=== PATIENT | female | born 1965 | race Two or more races ===

== ENCOUNTER 2017-11-23 10:27 | Emergency (ER) | payer OTHER ==
[2017-11-23 10:34] VITALS: BP 125/83; PULSE 76; TEMP 99; O2SAT 96
[2017-11-23 10:35] VITALS: BMI 23.8
[2017-11-23] MEDS ORDERED: Amoxicillin-Clav 875-125 mg Tab PO STA (11:21)
--- NOTE | 2017-11-23 11:25 | ED PDOC ---
Upper Extremity Pain/Injury Time Seen by Provider: 11/23/17 11:00 Chief Complaint (Nursing): Abnormal Skin Integrity Chief Complaint (Provider): dog bite History Per: Family (52 y/o female here for evaluation of dogbite injury that occurred today. 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 Dog was unprovoked; noted that cleaning crew was leaning for rag when it occurred. Right hand dominant. NOtes small abrasion but moderate pain in hand. Tetanus up to date within 5 years.) Past Medical History Reviewed: Historical Data, Nursing Documentation, Vital Signs Vital Signs: Last Vital Signs Temp 99 F 11/23/17 10:33 Pulse 76 11/23/17 10:33 Resp BP 125/83 11/23/17 10:33 Pulse Ox 96 11/23/17 10:33 - Family History Family History: States: No Known Family Hx - Home Medications Home Medications: Ambulatory Orders Medication Instructions Recorded Amoxicillin/Clavulanate [Augmentin 1 tab PO BID #9 tab 11/23/17 875 MG-125 MG] Naproxen 375 mg PO Q8 PRN #21 tablet 11/23/17 - Allergies Allergies/Adverse Reactions: Allergies Allergy/AdvReac Type Severity Reaction Status Date / Time No Known Allergies Allergy Verified 11/23/17 11:00 Review of Systems ROS Statement: Except As Marked, All Systems Reviewed And Found Negative Physical Exam - Reviewed Nursing Documentation Reviewed: Yes Vital Signs Reviewed: Yes - Physical Exam Appears: Positive for: Well, Non-toxic, No Acute Distress Head Exam: Positive for: ATRAUMATIC, NORMAL INSPECTION, NORMOCEPHALIC Skin: Positive for: Normal Color, Warm, DRY Eye Exam: Positive for: EOMI, Normal appearance, PERRL ENT: Positive for: Normal ENT Inspection Neck: Positive for: Normal, Painless ROM Cardiovascular/Chest: Positive for: Regular Rate, Rhythm Respiratory: Positive for: CNT, Normal Breath Sounds Gastrointestinal/Abdominal: Positive for: Normal Exam, Soft Back: Positive for: Normal Inspection Extremity: Positive for: Normal ROM, Other (small skin avulsion noted thenar prominence of right hand. Tender to touch in this region.) Neurologic/Psych: Positive for: Alert, Oriented - ECG O2 Sat by Pulse Oximetry: 96 - Progress ED Course And Treament: Augmentin 875 mg x 1 dose As dog is known, patient to ask prosthodontist/owner to locate vaccine status. If unknown, Animal control to be notified. Xry of hand: no fx Wound cleansed with betadiene/ sterile water profusely Wound dressed with bacitracin ointment. Disposition - Clinical Impression Clinical Impression: Dog bite - Patient ED Disposition Is Patient to be Admitted: No - Disposition Disposition: Routine/Home Disposition Time: 11:27 Condition: FAIR Additional Instructions: RETURN IN 2 DAYS FOR WOUND CHECK Prescriptions: Amoxicillin/Clavulanate [Augmentin 875 MG-125 MG] 1 tab PO BID #9 tab Naproxen 375 mg PO Q8 PRN #21 tablet PRN Reason: Pain, Moderate (4-7) Instructions: Animal Bites (DC) Forms: [facility] ED School/Work Excuse
--- NOTE | 2017-11-23 13:30 | RAD ---
HISTORY: hand injury COMPARISON: No prior FINDINGS: BONES: Normal. No fracture. JOINTS: Normal. No osteoarthritis. SOFT TISSUE: Normal. OTHER FINDINGS: None . IMPRESSION: Normal Bone Xray.
== END 2017-11-23 12:23 | disposition home or self-care (01) ==
LOC: H.ER 10:27
DX: S60.511A Abrasion of right hand, initial encounter (principal); W54.0XXA Bitten by dog, initial encounter; Y92.89 Other specified places as the place of occurrence of the external cause

== ENCOUNTER 2017-11-25 16:50 | Emergency (ER) | payer OTHER ==
[2017-11-25 16:50] VITALS: BMI 23.8
[2017-11-25 16:57] VITALS: BP 119/82; PULSE 82; RESP 16; TEMP 98.2; O2SAT 98
[2017-11-25] MEDS ORDERED: Rabies Immune Globulin 150 INTLU/ML VIAL IM STA (17:13)
--- NOTE | 2017-11-25 17:48 | ED PDOC ---
HPI: Skin/Bite Injury Time Seen by Provider: 11/25/17 17:13 Chief Complaint (Nursing): Bite Chief Complaint (Provider): Dog Bite History Per: Patient History/Exam Limitations: no limitations Onset/Duration Of Symptoms: Days Current Symptoms Are (Timing): Still Present Additional Complaint(s): 52 year old female presents to the emergency room with a dog bite. Patient states that she was seen her in the emergency room on Friday for a dog bite and states that since then she has been able to have the animal quarantined and is unclear of the rabies status. She reports that she is here today to receive the rabies vaccine. PMD: Shaik Villanueva Past Medical History Reviewed: Historical Data, Nursing Documentation, Vital Signs Vital Signs: Last Vital Signs Temp 98.2 F 11/25/17 16:54 Pulse 82 11/25/17 16:54 Resp 16 11/25/17 16:54 BP 119/82 11/25/17 16:54 Pulse Ox 98 11/25/17 17:52 - Medical History PMH: No Chronic Diseases - Surgical History Surgical History: No Surg Hx - Family History Family History: States: Unknown Family Hx - Home Medications Home Medications: Ambulatory Orders Medication Instructions Recorded Amoxicillin/Clavulanate [Augmentin 1 tab PO BID #9 tab 11/23/17 875 MG-125 MG] Naproxen 375 mg PO Q8 PRN #21 tablet 11/23/17 - Allergies Allergies/Adverse Reactions: Allergies Allergy/AdvReac Type Severity Reaction Status Date / Time No Known Allergies Allergy Verified 11/23/17 11:00 Review of Systems Skin: Positive for: Other (dog bite) Physical Exam - Reviewed Nursing Documentation Reviewed: Yes Vital Signs Reviewed: Yes - Physical Exam Appears: Positive for: Well, Non-toxic, No Acute Distress Head Exam: Positive for: ATRAUMATIC, NORMAL INSPECTION, NORMOCEPHALIC Skin: Positive for: Normal Color, Warm, DRY Eye Exam: Positive for: EOMI, Normal appearance, PERRL ENT: Positive for: Normal ENT Inspection Neck: Positive for: Normal, Painless ROM Cardiovascular/Chest: Positive for: Regular Rate, Rhythm Respiratory: Positive for: CNT, Normal Breath Sounds Gastrointestinal/Abdominal: Positive for: Normal Exam, Soft Back: Positive for: Normal Inspection Extremity: Positive for: Normal ROM, Other (right hand avulsion flap laceration palmar surface small healing well. No signs of infection ) Neurologic/Psych: Positive for: Alert, Oriented - ECG O2 Sat by Pulse Oximetry: 98 (RA) Pulse Ox Interpretation: Normal - Progress ED Course And Treament: 1160 IU rabies immunoglobin approximately 1/2 given by right hand rabies vaccine 1ml IM x 1 dose Medical Decision Making Medical Decision Makin Initial Impression 52 year old female presenting with dog bite Initial plan: * Imogam 1160 intlu IM * Rabavert vaccine inj 2.5 units IM * Reevaluation Documented by Althea Trevino acting as a scribe for Jann Lynn PA-C. All medical record entries made by the Scribe were at my direction and personally dictated by me. I have reviewed the chart and agree that the record accurately reflects my personal performance of the history, physical exam, medical decision making, and the department course for this patient. I have also personally directed, reviewed, and agree with the discharge instructions and disposition. Disposition - Clinical Impression Clinical Impression: Animal bite wound, Need for rabies vaccination - Patient ED Disposition Is Patient to be Admitted: No - Disposition Disposition: Routine/Home Disposition Time: 18:24 Condition: FAIR Additional Instructions: RETURN November FOR DAY 3 VACCINATION (TODAY IS DAY 0) Instructions: Rabies Vaccine
== END 2017-11-25 18:49 | disposition home or self-care (01) ==
LOC: H.ER 16:50
DX: Z29.14 Encounter for prophylactic rabies immune globulin (principal); Z23 Encounter for immunization

== ENCOUNTER 2017-11-30 12:58 | Emergency (ER) | payer OTHER ==
[2017-11-30 12:58] VITALS: BMI 23.8
[2017-11-30 13:03] VITALS: BP 105/63; PULSE 83; RESP 16; TEMP 98.1; O2SAT 100
--- NOTE | 2017-11-30 14:05 | ED PDOC ---
HPI: General Adult Time Seen by Provider: 11/30/17 13:04 Chief Complaint (Nursing): Rabies Vaccine Series Chief Complaint (Provider): Rabies Vaccine Series History Per: Patient History/Exam Limitations: no limitations Onset/Duration Of Symptoms: Days (x7) Current Symptoms Are (Timing): Better Additional Complaint(s): 52 year old female presents to the ED for rabies vaccination. Patient states on 11/23 she was bitten by a stranger's dog to her right hand and was supposed to come in three days ago for the vaccine, but forgot. She notes her symptoms have improved since last visit and has been compliant with the abx prescribed. Otherwise, (-) wound complications, (-) hand pain, (-) fever, (-) drainage, (-) increased swelling, (-) increased redness Right hand dominant. LNMP: more than 2 years ago. PMD: Shaik Caba Past Medical History Reviewed: Historical Data, Nursing Documentation, Vital Signs Vital Signs: Last Vital Signs Temp 98.1 F 11/30/17 13:01 Pulse 83 11/30/17 13:01 Resp 16 11/30/17 13:01 BP 105/63 11/30/17 13:01 Pulse Ox 100 11/30/17 14:22 - Medical History PMH: No Chronic Diseases - Surgical History Surgical History: No Surg Hx - Family History Family History: States: Unknown Family Hx - Social History Current smoker - smoking cessation education provided: Yes SMOKER/PACKS PER DAY:: 1 Alcohol: None Drugs: Denies - Home Medications Home Medications: Ambulatory Orders Medication Instructions Recorded Amoxicillin/Clavulanate [Augmentin 1 tab PO BID #9 tab 11/23/17 875 MG-125 MG] Naproxen 375 mg PO Q8 PRN #21 tablet 11/23/17 - Allergies Allergies/Adverse Reactions: Allergies Allergy/AdvReac Type Severity Reaction Status Date / Time No Known Allergies Allergy Verified 11/23/17 11:00 Review of Systems ROS Statement: Except As Marked, All Systems Reviewed And Found Negative Constitutional: Negative for: Fever Musculoskeletal: Negative for: Hand Pain Skin: Positive for: Other (healing wound without drainage, redness, or increased swelling) Physical Exam - Reviewed Nursing Documentation Reviewed: Yes Vital Signs Reviewed: Yes - Physical Exam Comments: GENERAL APPEARANCE: Patient is awake, alert, oriented x 3, in no acute distress. Resting comfortably. SKIN: healing puncture wound to right first web space, (+) scab, (-) active bleeding, (-) erythema, (-) tenderness (-) warmth (-) drainage. EXTREMITIES: full ROM of all extremities and digits of RUE. Sensation and cap refill intact. HENT: (-) conjunctival injection, (-) chemosis. Airway: patent (-) stridor, (-) hoarseness. Mucous membranes moist. Nares: Patent (-) rhinorrhea. NECK: Supple, FROM CARDIOVASCULAR: Normal rate and rhythm. (-) murmur, (-) gallop. CHEST: (-) rales, (-) wheezing, (-) dyspnea, (-) stridor. Breath sounds equal bilaterally. NEURO: Mental status as above. Gait steady, speech clear. (-) facial asymmetry ( -) focal deficits - ECG O2 Sat by Pulse Oximetry: 100 (RA) Pulse Ox Interpretation: Normal Medical Decision Making Medical Decision Making: Time: 1305 Initial Impression: dog bite, rabies vaccination Initial Plan: --Rabies vaccine 2.5 units IM --Re-evaluation 1417 On re-evaluation, patient remains AAOx3, in no acute distress. Neck is supple, lungs CTA, cardiac RRR, neuro exam shows no focal findings. VSS, stable for discharge. Advised to continue wound care at home and to complete prescribed course of antibiotics from prior ED visit. Diagnostic results d/w the patient in great detail. Dx of animal bite, rabies vaccination d/w the patient. Based on history, exam and diagnostic results plan will be for discharge and outpatient follow up. Return for rabies vaccination on 12/02/17. Return to the emergency room at any time for any new or worsening symptoms. Patient states she fully agrees with and understands discharge instructions. States that she agrees with the plan and disposition. Verbalized and repeated discharge instructions and plan. I have given the patient opportunity to ask any additional questions. Scribe Attestation: Documented by Antonieta Ramirez, acting as a scribe for Emelina Ramirez PA-C. Provider Scribe Attestation: All medical record entries made by the Scribe were at my direction and personally dictated by me. I have reviewed the chart and agree that the record accurately reflects my personal performance of the history, physical exam, medical decision making, and the department course for this patient. I have also personally directed, reviewed, and agree with the discharge instructions and disposition. Disposition - Clinical Impression Clinical Impression: Need for rabies vaccination, Dog bite, Puncture wound of hand - Patient ED Disposition Is Patient to be Admitted: No Counseled Patient/Family Regarding: Diagnosis, Need For Followup - Disposition Referrals: Shaik Caba MD [Primary Care Provider] - Disposition: Routine/Home Disposition Time: 14:19 Condition: STABLE Additional Instructions: FOLLOW UP PREVIOUSLY DIRECTED FOR REMAINDER OF RABIES VACCINATION SERIES. NEXT VISIT: 12/02/17 RETURN TO ED WITH ANY NEW OR WORSENING SYMPTOMS. COMPLETE COURSE OF ANTIBIOTICS UNTIL FINISHED. KEEP WOUND CLEAN AND DRY. Instructions: Animal Bites (DC), Wound Care Forms: [facility] (E[place]ian) Print Language: UKRAINIAN - POA Present On Arrival: Falls Or Trauma (BITE WOUND)
== END 2017-11-30 14:30 | disposition home or self-care (01) ==
LOC: H.ER 12:58
DX: Z29.14 Encounter for prophylactic rabies immune globulin (principal)